=== PATIENT | female | born 1960 | race Caucasian/White ===

== ENCOUNTER 2018-12-25 18:25 | Emergency (ER) | payer OTHER ==
[~2018-12-25] VITALS: Ht 162.6 cm; Wt 68.0 kg
[2018-12-25 18:32] VITALS: BP_SYST 122
--- NOTE | 2018-12-25 18:32 | NUR ---
PATIENT SITTING UP ON BED. AAOx4. RESPIRATIONS EVEN AND UNLABORED. NO SOB. DENIES OF ANY CHEST PAIN. PT WITH C/O LEFT HAND, LEFT WRIST, AND LEFT FOREARM PAIN x TODAY. LEFT UPPER EXTREMITY WITH NO BRUISING, REDNESS, SWELLING, OR OPEN SKIN. PT STATES THAT SHE HURT HER ARM WHILE PULLING ON A BED AT [employer]. PAIN = 9/10. ICE PACK GIVEN AND BEING APPLIED BY PT. TOLERATING WELL. PT RESTING LEFT ARM ON TOP OF A PILLOW. REST AND RELAXATION ENCOURAGED. AWAITING MD ORDERS.
--- NOTE | 2018-12-25 18:32 | NUR ---
PATIENT PLACED IN ROOM #7 AND TRIAGED.
--- NOTE | 2018-12-25 18:40 | NUR ---
ER Dr. PATRICK at bedside examining patient.
--- NOTE | 2018-12-25 18:50 | NUR ---
TORADOL ADMINISTERED PER MD ORDERS. TOLERATED WELL. PLEASE SEE EMAR FOR DETAILS.
[2018-12-25] MEDS: KETOROLAC TROMETHAMINE 60 MG/2 ML VIAL IM ONE (18:53)
--- NOTE | 2018-12-25 18:55 | NUR ---
ARM SLING applied to LEFT UPPER EXTREMITY BY MARCOS XAVIER. TOLERATED WELL. RADIAL pulse noted. Capillary refill <2 seconds. Patient has ability to move non-splinted digits. Has sensation present to affected site. Skin color within normal limits. Applied for pain management control.
[2018-12-25 19:00] VITALS: BP_SYST 122
--- NOTE | 2018-12-25 19:00 | NUR ---
Patient given written and verbal discharge instructions and verbalizes understanding. ER MD discussed with patient the results and treatment provided. Patient in stable condition. ID arm band removed. No Rx given. Patient educated on pain management and to follow up with PMD. Pain Scale 7/10; TOLERABLE VERBALIZED. Opportunity for questions provided and answered. Medication side effect fact sheet provided. PATIENT IN GOOD CONDITION AND IN NO ACUTE DISTRESS. PATIENT NOTED WITH A STABLE GAIT.
== END 2018-12-25 23:35 | disposition home or self-care (01) ==
LOC: SED 18:25
DX: M65.832 Other synovitis and tenosynovitis, left forearm (principal); R03.0 Elevated blood-pressure reading, without diagnosis of hypertension; X50.9XXA Other and unspecified overexertion or strenuous movements or postures, initial encounter; X58.XXXA Exposure to other specified factors, initial encounter; Y93.89 Activity, other specified; Y92.89 Other specified places as the place of occurrence of the external cause; Y99.8 Other external cause status
CPT/HCPCS: 96372; 99283; J1885

== ENCOUNTER 2019-02-27 18:04 | Emergency (ER) | payer MEDICAID, OTHER ==
[~2019-02-27] VITALS: Ht 162.6 cm; Wt 65.8 kg
[2019-02-27 18:15] VITALS: BP_SYST 171
--- NOTE | 2019-02-27 18:20 | NUR ---
Patient to ER bed 6 to gown for evaluation. Side rails up. Report given to STEPH Page.
[2019-02-27] MEDS ORDERED: IPRATROPIUM/ALBUTEROL SULFATE 3 ML AMPUL.NEB (DUONEB) INH ONE (18:30)
[2019-02-27] MEDS ORDERED: MAGNESIUM SULFATE 50 ML IV ONE (18:30)
[2019-02-27] MEDS ORDERED: methylPREDNISolone SOD SUCC/PF 62.5 MG/ML VIAL IVP ONE (18:30)
--- NOTE | 2019-02-27 18:30 | NUR ---
Note undone in EDM - 02/27/19 at 1925 by [email or web address] Patient arrived via POV, AAOx4, and ambulatory. Patient c/c of productive cough x 3 days, increasing shortness of breath. Patient has yellow phlegm. States pain with inspiration. Patient has been using nebulizer at home, and has no relief. Patient also states she has ran out of insulin. Patient no complaints of N/V/D, or chest pain or abdominal pain. Will continue to follow up and monitor.
--- NOTE | 2019-02-27 18:30 | NUR ---
ER at bedside examining patient.
--- NOTE | 2019-02-27 18:42 | NUR ---
# 20 gauge angiocath placed to right ac. Use of asceptic technique. Opsite placed over site. Blood return noted. Blood for lab drawn from site. Flushed with 10 cc of normal saline. No evidence of infiltration noted. Patient tolerated well.
[2019-02-27 18:57] LABS: BASOPHILS % (AUTO) 0.3 % (0.0-2.0); EOSINOPHILS # (AUTO) 0.3 K/uL (0.0-0.4); EOSINOPHILS % (AUTO) 2.7 % (0.0-4.0); HEMATOCRIT 46.7 % (36-48); HEMOGLOBIN 15.6 g/dL (12.0-16.0); LYMPHOCYTES # (AUTO) 4.2 K/uL (1.0-5.5); LYMPHOCYTES % (AUTO) 37.3 % (20.5-51.5); MEAN CORPUSCULAR HEMOGLOBIN 28 pg (27-31); MEAN CORPUSCULAR HGB CONC 34 % (32-36); MEAN CORPUSCULAR VOLUME 84 fL (79.0-98.0); MONOCYTES # (AUTO) 0.5 K/uL (0.0-1.0); MONOCYTES % (AUTO) 4.7 % (1.7-9.3); NEUTROPHILS # (AUTO) 6.2 K/uL (1.8-7.7); PLATELET COUNT (AUTO) 299 K/uL (130-430); RED BLOOD CELL COUNT(AUTO) 5.57 MIL/uL (4.2-6.2); RED CELL DISTRIBUTION WIDTH 13.8 % (9.0-15.0); WHITE BLOOD COUNT (AUTO) 11.3 K/uL (4.8-10.8)
[2019-02-27 19:10] LABS: CALCIUM 10.6 mg/dL (8.4-11.0); CREATININE 0.76 mg/dL (0.55-1.30); POTASSIUM 3.6 mmol/L (3.5-5.1)
[2019-02-27 19:15] LABS: ALBUMIN 4.6 g/dL (3.4-4.8); TOTAL BILIRUBIN 0.3 mg/dL (0.0-1.0)
--- NOTE | 2019-02-27 19:24 | NUR ---
Patient arrived via POV, AAOx4, and ambulatory. Patient c/c of productive cough x 3 days, increasing shortness of breath. Patient has yellow phlegm. States pain with inspiration. Patient has been using nebulizer at home, and has no relief. Patient also states she has ran out of insulin. Patient no complaints of N/V/D, or chest pain or abdominal pain. Will continue to follow up and monitor.
[2019-02-27] MEDS ORDERED: KETOROLAC TROMETHAMINE 30 MG VIAL IVP ONE (19:45)
[2019-02-27 20:10] VITALS: BP_SYST 151
--- NOTE | 2019-02-27 20:10 | NUR ---
Patient given written and verbal discharge instructions and verbalizes understanding. ER MD discussed with patient the results and treatment provided. Patient in stable condition. ID arm band removed. IV catheter removed intact and dressing applied, no active bleeding. Rx of Ipratroprium [place]/Albuterol, Prednisone, Albuterol, Basaglar KwikPen, and Atorvastan given. Patient educated on pain management and to follow up with PMD. Pain Scale 0. Opportunity for questions provided and answered. Medication side effect fact sheet provided.
== END 2019-02-27 20:10 | disposition home or self-care (01) ==
LOC: SED 18:04
DX: J44.1 Chronic obstructive pulmonary disease with (acute) exacerbation (principal); E11.9 Type 2 diabetes mellitus without complications; I10 Essential (primary) hypertension
CPT/HCPCS: 36415; 71045; 80053; 85025; 87040; 94640; 96365; 96366; 96375; 99284; J1885; J2930; J3475; J7620

== ENCOUNTER 2020-11-01 10:39 | Emergency (ER) | payer OTHER, MEDICAID ==
[~2020-11-01] VITALS: Ht 162.6 cm; Wt 59.0 kg
[2020-11-01 11:06] VITALS: BP_SYST 145
[2020-11-01] MEDS ORDERED: NAPR-1172 PO (11:16)
[2020-11-01] MEDS ORDERED: AMOX-426 PO (11:16)
[2020-11-01] MEDS: KETOROLAC TROMETHAMINE 60 MG/2 ML VIAL IM ONE (11:20)
[2020-11-01 11:25] VITALS: BP_SYST 145
== END 2020-11-01 11:25 | disposition home or self-care (01) ==
LOC: SED 10:39
DX: J32.0 Chronic maxillary sinusitis (principal); J44.9 Chronic obstructive pulmonary disease, unspecified; E11.9 Type 2 diabetes mellitus without complications; I10 Essential (primary) hypertension; Z90.710 Acquired absence of both cervix and uterus
CPT/HCPCS: 96372; 99283; J1885

== ENCOUNTER 2022-11-23 09:53 | Emergency (ER) | payer OTHER, MEDICAID ==
[~2022-11-23] VITALS: Ht 162.6 cm; Wt 58.1 kg
[2022-11-23 09:53] VITALS: BP_SYST 167
[~2022-11-23 09:53] MED LIST: AMOX-426 PO; NAPR-1172 PO
--- NOTE | 2022-11-23 09:53 | NUR ---
BROUGHT BACK TO BED #8 AND TRIAGED. REPORT GIVEN TO LAYA
--- NOTE | 2022-11-23 10:00 | NUR ---
RECEIVED PT FROM STEPH BARRON. PT BIB SELF FOR C/O S/S HIGH BLOOD SUGAR. PT IS AAOX4. ON R/A. TELEMONITOR SHOW SINUS TACH HR 110. C/O N/V. DISTAL PULSES NORMAL, SKIN DRY WITH SCATTERED SCABS AND DRY SKIN TO BUE. NO PERIFERAL EDEMA.
--- NOTE | 2022-11-23 10:15 | NUR ---
DR. LIU AT BEDSIDE TO ASSESS PT.
[2022-11-23] MEDS ORDERED: NACL 0.9% 1,000 ML IV ONE ×2 (10:30)
[2022-11-23 10:53] LABS: BASOPHILS % (AUTO) 0.3 % (0.0-2.0); EOSINOPHILS % (AUTO) 0.2 % (0.0-4.0); HEMATOCRIT 45.5 % (36-48); HEMOGLOBIN 15.2 g/dL (12.0-16.0); LYMPHOCYTES # (AUTO) 2.3 K/uL (1.0-5.5); LYMPHOCYTES % (AUTO) 16.5 % (20.5-51.5); MEAN CORPUSCULAR HEMOGLOBIN 29 pg (27-31); MEAN CORPUSCULAR HGB CONC 34 % (32-36); MEAN CORPUSCULAR VOLUME 85 fL (79.0-98.0); MONOCYTES # (AUTO) 0.5 K/uL (0.0-1.0); MONOCYTES % (AUTO) 3.7 % (1.7-9.3); NEUTROPHILS % (AUTO) 79.3 % (40.0-70.0); PLATELET COUNT (AUTO) 300 K/uL (130-430); RED BLOOD CELL COUNT(AUTO) 5.35 MIL/uL (4.2-6.2); RED CELL DISTRIBUTION WIDTH 13.9 % (9.0-15.0); WHITE BLOOD COUNT (AUTO) 13.9 K/uL (4.8-10.8)
--- NOTE | 2022-11-23 11:06 | NUR ---
JOZEF SWABBED AND SENT TO LAB
[2022-11-23 11:07] LABS: ANION GAP 9 (5-15); CALCIUM 9.5 mg/dL (8.4-11.0); CHLORIDE 95 mmol/L (98-107); CREATININE 0.87 mg/dL (0.55-1.30); GFR AFRICAN AMERICAN 85 mL/min (>90); GLUCOSE 314 mg/dL (70-99); UREA NITROGEN, BLOOD 20 mg/dL (8-21)
--- NOTE | 2022-11-23 11:10 | NUR ---
URINE OBTAINED AND TAKEN TO LAB.
[2022-11-23 11:11] LABS: ALANINE AMINOTRANSFERASE 19 U/L (12-78); ALBUMIN 4.1 g/dL (3.4-4.8); ASPARTATE AMINOTRANSFERASE 20 U/L (10-37); LIPASE 71 U/L (73-393); TOTAL BILIRUBIN 0.5 mg/dL (0.0-1.0)
[2022-11-23 11:12] LABS: ACETONE, SERUM NEGATIVE (NEGATIVE)
[2022-11-23 11:31] LABS: BILIRUBIN,URINE NEGATIVE (NEGATIVE); BLOOD, URINE NEGATIVE (NEGATIVE); CLARITY/URINE CLEAR (CLEAR); COLOR,URINE YELLOW (YELLOW); GLUCOSE,URINE 3+ (NEGATIVE); KETONES,URINE 1+ (NEGATIVE); LEUKOCYTE ESTERASE ,URINE NEGATIVE (NEGATIVE); NITRITE, URINE NEGATIVE (NEGATIVE); PROTEIN URINE NEGATIVE (NEGATIVE); UROBILINOGEN,URINE 0.2 (0.2-1.0)
[2022-11-23 11:43] LABS: BACTERIA,URINE None Seen /HPF (None Seen); MUCUS,URINE None Seen /LPF (None Seen); RBC,URINE NONE SEEN /HPF (0-3); WBC,URINE 0-3 /HPF (0-3)
[2022-11-23] MEDS ORDERED: ONDANSETRON HCL 4 MG/2 ML VIAL IVP ONE (11:45)
[2022-11-23] MEDS ORDERED: KETOROLAC TROMETHAMINE 30 MG VIAL IVP ONE (11:45)
--- NOTE | 2022-11-23 11:52 | NUR ---
TORADOL 30MG IVP GIVEN FOR ABDOMINAL PAIN 03/26. ZOFRAN GIVEN.
[2022-11-23] MEDS ORDERED: cloNIDine HCL 0.1 MG TABLET PO ONE (13:00)
--- NOTE | 2022-11-23 13:30 | NUR ---
DR. LIU AT BEDSIDE TO DISCUSS POC.
[2022-11-23] MEDS ORDERED: ONDA-8 TL (13:31)
--- NOTE | 2022-11-23 14:08 | NUR ---
Patient given written and verbal discharge instructions and verbalizes understanding. ER MD discussed with patient the results and treatment provided. Patient in stable condition. ID arm band removed. IV catheter removed intact and dressing applied, no active bleeding. Rx of ZOFRAN given. Patient educated on pain management and to follow up with PMD. Pain Scale 0/10. Opportunity for questions provided and answered. Medication side effect fact sheet provided.
[2022-11-23 14:14] VITALS: BP_SYST 144
== END 2022-11-23 14:08 | disposition home or self-care (01) ==
LOC: SED 09:53
DX: K52.9 Noninfective gastroenteritis and colitis, unspecified (principal); K80.20 Calculus of gallbladder without cholecystitis without obstruction; E11.9 Type 2 diabetes mellitus without complications; I10 Essential (primary) hypertension; J44.9 Chronic obstructive pulmonary disease, unspecified; Z88.8 Allergy status to other drugs, medicaments and biological substances; Z79.899 Other long term (current) drug therapy; Z20.822 Contact with and (suspected) exposure to COVID-19
CPT/HCPCS: 99284; 74176; 96374; 96361; 96375; 87426; 80053; 81000; 82009; 83690; 85025; 87040; 87086; 36415; 93005; 76376; J1885; J2405; J7030